=== PATIENT | female | born 1950 | race Caucasian/White ===

== ENCOUNTER 2022-05-26 08:15 | Emergency (ER) | payer MEDICARE ==
[~2022-05-26] VITALS: Ht 160 cm; Wt 65.8 kg
[2022-05-26] MEDS ORDERED: BENZONATATE 100 MG CAP PO STA (08:39)
[2022-05-26 10:31] LABS: BASOPHILS % 0.3 % (0.0-1.0); EOSINOPHILS # (AUTO) 0.2 (0.0-0.4); EOSINOPHILS % 1.2 % (0.0-6.0); HEMATOCRIT 47.2 % (34.2-44.1); HEMOGLOBIN 15.3 g/dL (12.0-16.0); LYMPHOCYTES # (AUTO) 1.5 (1.0-3.2); LYMPHOCYTES % 12.5 % (18.0-39.1); MEAN CORPUSCULAR HEMOGLOBIN 30.5 pg (28-32); MEAN CORPUSCULAR HGB CONC 32.4 g/dL (31-35); MONOCYTES # (AUTO) 0.7 (0.2-0.8); MONOCYTES % 5.6 % (4.4-11.3); NEUTROPHILS # (AUTO) 9.7 (2.1-6.9); NEUTROPHILS % 79.9 % (38.7-80.0); PLATELET COUNT 263 x10e3/uL (140-360); RED BLOOD COUNT 5.02 x10e6/uL (3.6-5.1); RED CELL DISTRIBUTION WIDTH 13.2 % (11.7-14.4)
[2022-05-26 10:53] LABS: ANION GAP 12.2 mmol/L (8-16); CALCIUM 9.1 mg/dL (8.4-10.2); CREATININE, SERUM 0.68 mg/dL (0.57-1.11); POTASSIUM 4.2 mmol/L (3.5-5.1)
[2022-05-26] MEDS ORDERED: IOPAMIDOL 370 MG/ML 100 ML INFUS..BTL INJ ONE (11:32)
[2022-05-26] MEDS ORDERED: BENZONATATE100 MG PO (12:45)
== END 2022-05-26 13:01 | disposition home or self-care (01) ==
LOC: ER 09:30
DX: R05.9 Cough, unspecified (principal); J98.4 Other disorders of lung; M81.8 Other osteoporosis without current pathological fracture
CPT/HCPCS: 36415; 71046; 71260; 80053; 85025; 99284; Q9967